=== PATIENT | female | born 1970 | race African-American/Black ===

== ENCOUNTER 2017-12-03 18:23 | Emergency (ER) | END 2017-12-03 19:00 | disposition home or self-care (01) ==

== ENCOUNTER 2017-12-19 01:37 | Emergency (ER) | END 2017-12-19 06:08 | disposition left against medical advice (07) ==

== ENCOUNTER 2017-12-25 01:07 | Emergency (ER) | END 2017-12-25 03:00 | disposition home or self-care (01) ==

== ENCOUNTER 2017-12-26 03:54 | Emergency (ER) | END 2017-12-26 06:30 | disposition left against medical advice (07) ==

== ENCOUNTER 2017-12-27 16:51 | Emergency (ER) | END 2017-12-27 20:50 | disposition home or self-care (01) ==

== ENCOUNTER 2017-12-28 00:32 | Emergency (ER) | END 2017-12-28 07:08 | disposition home or self-care (01) ==

== ENCOUNTER 2018-01-07 01:28 | Emergency (ER) | END 2018-01-07 03:10 | disposition left against medical advice (07) ==

== ENCOUNTER 2018-01-09 03:53 | Emergency (ER) | END 2018-01-09 07:54 | disposition home or self-care (01) ==

== ENCOUNTER 2018-01-18 02:59 | Emergency (ER) | END 2018-01-18 03:50 | disposition home or self-care (01) ==

== ENCOUNTER 2018-01-22 23:51 | Emergency (ER) | END 2018-01-23 05:00 | disposition left against medical advice (07) ==

== ENCOUNTER 2018-01-27 23:54 | Emergency (ER) | END 2018-01-28 03:05 | disposition home or self-care (01) ==

== ENCOUNTER 2018-01-28 22:28 | Emergency (ER) | END 2018-01-28 22:59 | disposition home or self-care (01) ==

== ENCOUNTER 2018-02-07 00:15 | Emergency (ER) | END 2018-02-07 00:51 | disposition home or self-care (01) ==

== ENCOUNTER 2018-04-24 00:41 | Emergency (ER) | END 2018-04-24 03:14 | disposition home or self-care (01) ==

== ENCOUNTER 2018-04-25 02:36 | Emergency (ER) | END 2018-04-25 06:49 | disposition home or self-care (01) ==

== ENCOUNTER 2018-04-26 03:22 | Emergency (ER) | END 2018-04-26 04:19 | disposition home or self-care (01) ==

== ENCOUNTER 2018-05-04 00:36 | Emergency (ER) | END 2018-05-04 01:28 | disposition left against medical advice (07) ==

== ENCOUNTER 2018-05-06 10:30 | Emergency (ER) | END 2018-05-06 12:39 | disposition home or self-care (01) ==

== ENCOUNTER 2018-05-06 15:08 | Emergency (ER) | END 2018-05-06 15:53 | disposition home or self-care (01) ==

== ENCOUNTER 2018-05-06 20:12 | Emergency (ER) | END 2018-05-06 20:40 | disposition home or self-care (01) ==

== ENCOUNTER 2018-05-11 00:11 | Emergency (ER) | END 2018-05-11 03:10 | disposition home or self-care (01) ==

== ENCOUNTER 2018-05-12 21:08 | Emergency (ER) | END 2018-05-12 23:14 | disposition home or self-care (01) ==

== ENCOUNTER 2018-05-14 20:41 | Emergency (ER) | END 2018-05-14 21:33 | disposition home or self-care (01) ==

== ENCOUNTER 2018-05-15 01:55 | Emergency (ER) | END 2018-05-15 03:33 | disposition home or self-care (01) ==

== ENCOUNTER 2018-05-16 22:58 | Emergency (ER) | END 2018-05-17 03:29 | disposition home or self-care (01) ==